=== PATIENT | male | born 1980 | race Two or more races ===

== ENCOUNTER 2020-11-07 21:30 | Emergency (ER) | payer OTHER ==
[~2020-11-07] VITALS: Ht 175.3 cm; Wt 77.1 kg
[2020-11-07 21:31] VITALS: BP 124/85
== END 2020-11-07 23:29 | disposition home or self-care (01) ==
LOC: ER 21:30 → EDSEX 21:30 → ER 23:29
DX: S00.81XA Abrasion of other part of head, initial encounter (principal); W18.39XA Other fall on same level, initial encounter; Y93.89 Activity, other specified; Y92.89 Other specified places as the place of occurrence of the external cause; Y99.8 Other external cause status

== ENCOUNTER 2021-06-27 15:00 | Emergency (ER) | payer MEDICAID, OTHER ==
[~2021-06-27] VITALS: Ht 175.3 cm; Wt 77.1 kg
[2021-06-27 15:03] VITALS: BP 123/89
[2021-06-27] MEDS ORDERED: [UNRECOGNIZED DRUG - CODE] XX (19:15)
[2021-06-27] MEDS ORDERED: IBUP600T28 PO (19:15)
== END 2021-06-27 19:54 | disposition home or self-care (01) ==
LOC: ER 15:00
DX: G56.31 Lesion of radial nerve, right upper limb (principal); Z79.1 Long term (current) use of non-steroidal anti-inflammatories (NSAID); Z79.899 Other long term (current) drug therapy